=== PATIENT | female | born 1990 | race Caucasian/White ===

== ENCOUNTER 2018-01-13 21:05 | Emergency (ER) | payer OTHER ==
[~2018-01-13] VITALS: Ht 165.1 cm; Wt 113.4 kg
[~2018-01-13 21:05] MED LIST: ALBU90OI; ALBU90OI INH; AZIT250 PO; Amoxicillin500 MG PO; BUPR100 PO; CIPR500 PO; CLARITIN10 MG PO; FLUT220OIA; IBUP800 PO; MULVITMINE PO; Mucinex600 MG PO; NITR100CA PO; NUVA RING; OXYACE5T PO; PHENA200 PO; PRODEXEL PO; Prednisone20 MG PO; Q-Tussin100 MG/5 M PO; RXPHEN200 PO; SULTRIDS PO; Zithromax250 MG PO; Zofran Odt8 MG SL
[2018-01-13] MEDS ORDERED: Augmentin 875-1 EACH PO (21:41)
[2018-01-13] MEDS ORDERED: BENZ100A PO (21:41)
== END 2018-01-13 22:08 | disposition home or self-care (01) ==
LOC: ER 21:05
DX: J32.9 Chronic sinusitis, unspecified (principal); J45.901 Unspecified asthma with (acute) exacerbation; Z88.8 Allergy status to other drugs, medicaments and biological substances; Z79.899 Other long term (current) drug therapy; Z79.2 Long term (current) use of antibiotics; F17.200 Nicotine dependence, unspecified, uncomplicated
CPT/HCPCS: 94640; 99283

== ENCOUNTER → 2018-10-18 | Outpatient (CLI) | payer OTHER ==
[~2018-10-18] MED LIST changes: +Augmentin 875-1 EACH PO; +BENZ100A PO
== END | disposition home or self-care (01) ==
LOC: LAB 16:10 → LAB SHORT 16:10
PROVIDERS: Obstetrics & Gynecology
DX: Z01.419 Encounter for gynecological examination (general) (routine) without abnormal findings (principal)
CPT/HCPCS: G0123